=== PATIENT | male | born 1965 | race Hispanic/Latino ===

== ENCOUNTER 2017-11-28 09:54 | Inpatient (IN) | payer BC ==
[2017-11-28] MEDS ORDERED: Nitroglycerin 2% Ointment 1 INCH/1 GM Packet ONE (10:23)
--- NOTE | 2017-11-28 10:33 | RAD ---
PORTABLE CHEST: History: Chest pain. FINDINGS: The lungs are clear. Heart and mediastinum appear normal. Vasculature is normal. IMPRESSION: No acute abnormality. POS: [facility]
[2017-11-28 10:38] LABS: #Eosinphils 0.3 thou/uL (0.0-0.7); #Lymphocytes 1.2 thou/uL (1.20-3.40); #Monocytes 0.3 thou/uL (0.11-0.59); #Neutrophils 3.3 thou/uL (1.40-6.50); %Basophils 0.8 % (0.0-1.0); %Eosinophils 5.3 % (0.0-10.0); %Lymphocytes 23.3 % (21.0-51.0); %Monocytes 5.4 % (0.0-10.0); %Neutrophils 65.2 % (42.0-75.0); Hemoglobin 15.7 g/dL (14.0-18.0); Mean Corpuscular HGB CONC 34.3 g/dL (32.0-36.0); Mean Corpuscular Hemoglobin 32.9 pg (27.0-31.0); Mean Platelet Volume 6.8 fL (7.4-10.4); Platelet Count 262 thou/uL (130-400); Red Blood Cell (RBC) Count 4.77 mill/uL (4.70-6.10); White Blood Cell (WBC) Count 5.1 thou/uL (4.8-10.8)
[2017-11-28 10:47] LABS: INR-International Normal Ratio 0.9; PTT 27.2 SEC (22.9-36.1); Prothrombin Time 12.6 SEC (12.0-14.7)
[2017-11-28 11:00] LABS: ALT (SGPT) 14 U/L (8-55); AST (SGOT) 15 U/L (5-34); Albumin 4.3 g/dL (3.5-5.0); Alkaline Phosphatase 47 U/L (40-150); Anion Gap 5 mmol/L (10-20); BUN (Urea Nitrogen) 10 mg/dL (8.4-25.7); Bilirubin, Total 0.6 mg/dL (0.2-1.2); CK (CPK) 91 U/L (30-200); Calc. Creatinine Clearance 0 mL/min (70-130); Calcium 9.5 mg/dL (7.8-10.44); Carbon Dioxide 32 mmol/L (22-29); Chloride 104 mmol/L (98-107); Estimated GFR-MDRD 87; Globulin 2.6 g/dL (2.4-3.5); Glucose 93 mg/dL (70-105); Lipase 34 U/L (8-78); Protein, Total 6.9 g/dL (6.0-8.3); Sodium 137 mmol/L (136-145)
[2017-11-28 11:03] LABS: CKMB 0.8 ng/mL (0-6.6); Troponin I Less than 0.010 ng/mL (< 0.028)
[2017-11-28] MEDS ORDERED: Nitroglycerin 0.4 MG TAB (25 Tab Bottle) PO PRN (13:09)
[2017-11-28] MEDS ORDERED: Senokot 8.6 MG TAB PO PRN (13:09)
[2017-11-28] MEDS ORDERED: Enoxaparin Sodium 80 MG/0.8 ML SYRINGE SC SCH (13:15)
[2017-11-28] MEDS ORDERED: Enoxaparin Sodium 80 MG/0.8 ML SYRINGE ONE (13:58)
[2017-11-28 14:11] LABS: CKMB 0.9 ng/mL (0-6.6); Troponin I 0.013 ng/mL (< 0.028)
--- NOTE | 2017-11-28 16:33 | HP ---
PRIMARY CARE PHYSICIAN: Dr. Brooks. CHIEF COMPLAINT: Chest tightness. HISTORY OF PRESENT ILLNESS: Patient is a very pleasant 52-year-old male with a past medical history of seronegative rheumatoid arthritis and basal cell skin cancer, who presented to the hospital with c omplaints of chest tightness. The patient states that he is very active, runs about 10-12 miles a we ek, and has been noticing that every time he starts running and strains. he starts having chest tight ness. Patient then also states that he has been having chest pain or chest tightness while sitting a nd at rest. Patient states that, years ago, he has had 2 stress tests, which have indicated that the y were abnormal. The patient also states that he had been evaluated by a consumer loan officer, who did recom mend a cardiac catheterization at that point; however, the patient stated that he is very healthy and was able to workout without any problems, workout including lifting weights and running. Therefore, he never underwent a cardiac catheterization. Patient does state that he does have a significant [facility]; his father had a quadruple bypass at the age of 50. Patient denies any nausea, vomitin g, radiation of the pain to his arms or jaw area. The patient states that, last night, he had intens e chest tightness. He took an aspirin, hoping that it would improve; however, throughout the night t he intensity of the chest tightness worsened. He took another aspirin and this morning again he just felt very uncomfortable with worsening chest tightness, so he brought himself to the ER. He did see his PCP prior to this admission and was supposed to go to an unknown consumer loan officer in town for an klever luation; however, patient could not wait that long, because of his chest pain intensity. PAST MEDICAL HISTORY: 1. Seronegative rheumatoid arthritis. 2. Basal cell carcinoma. FAMILY HISTORY: The patient states that his father had a quadruple bypass at the age of 50. Patient 's two sons have been diagnosed with hypertension and they were pretty young. PAST SURGICAL HISTORY: Hernia repair and skin cancer removal. SOCIAL HISTORY: He denies any alcohol use. Denies any drug use. He has never smoked. ALLERGIES: He has no known drug allergies. CURRENT MEDICATIONS: He takes none. The patient did state that he was on Plaquenil in the past for seronegative rheumatoid arthritis; however, he started having worsening anxiety, which his rheumatolo gist took him off of it. REVIEW OF SYSTEMS: The following complete review of systems was negative, unless otherwise mentioned in the HPI or below: Constitutional: Weight loss or gain, ability to conduct usual activities. Sk in: Rash, itching. Eyes: Double vision, pain. ENT/Mouth: Nose bleeding, neck stiffness, pain, te nderness. Cardiovascular: Palpitations, dyspnea on exertion, orthopnea. Respiratory: Shortness of breath, wheezing, cough, hemoptysis, fever, or night sweats. Gastrointestinal: Poor appetite, abdo natalio pain, heartburn, nausea, vomiting, constipation, or diarrhea. Genitourinary: Urgency, frequen cy, dysuria, nocturia. Musculoskeletal: Pain, swelling. Neurologic/Psychiatric: Anxiety, depressi on. Allergy/Immunologic: Skin rash, bleeding tendency. PHYSICAL EXAMINATION: VITAL SIGNS: Temperature is 98.8, respirations are 15, 61 heart rate, 97% on room air, blood pressur e 144/87. GENERAL: The patient is awake, alert, oriented x3, does not appear in any distress currently. HEENT: Normocephalic, atraumatic. NECK: No lymphadenopathy noted. LUNGS: Clear to auscultation. No rhonchi or wheezes noted. CARDIOVASCULAR: The patient has a mild systolic murmur that is heard in all 4 quadrants. No JVD not ed. ABDOMEN: Soft, nontender. Bowel sounds are present x2. EXTREMITIES: No pedal edema noted. LABORATORY DATA: Labs are as the following: Troponin x3 are negative. EKG did show some inverted P -waves in his leads III and Q-waves in V2. White count is 5.1, hemoglobin of 15.7, hematocrit of 48. 8, platelets of 262,000. Chemistry: Sodium of 137, potassium 4.0, anion gap of 5, bicarbonate of 32 , creatinine 0.91. Troponins x2 were negative. BNP was 25.2. ASSESSMENT AND PLAN: The patient is a very pleasant 52-year-old male, who presents to the hospital f or chest pain. 1. Unstable angina. We will continue to trend troponins x3. We will consult Cardiology. The patie nt was given aspirin. We will put him on a statin. We will check a lipid level in the morning. We will also put the patient on Lovenox. Even though his troponins are negative, he has high cardiac ri sk factors. The patient currently is chest pain free after having the nitro. We will also order nit ro p.r.n. 2. Seronegative rheumatoid arthritis. The patient currently is on no medication. 3. History of basal cell cancer, currently is stable.
[2017-11-28] MEDS ORDERED: Communication Order-Pharmacy FS SCH (16:45)
--- NOTE | 2017-11-28 17:10 | CON ---
DATE OF CONSULTATION: 11/28/2017 REASON FOR CONSULTATION: Accelerated chest pain. HISTORY OF PRESENT ILLNESS: Mr. Short is a very pleasant 52-year-old gentleman who recently prese nted with chest pain. He states noted over the last several weeks. He states he normally runs on a daily basis. He states his exercise tolerance has diminished over the last several weeks. Initially , he was running over 2 miles. He then developed chest pressure and tightness. He was able to run t hird. He then states he had to stop and rest. He then states he can only run no more than a mile an d most recently began having pain at rest. No other ameliorating, exacerbating, or precipitating fac tors present. PAST MEDICAL HISTORY: Mildly elevated blood pressure, although no diagnosis of hypertension, osteoar thritis, hernia operation. ALLERGIES: None. HOME MEDICATIONS: Sulfasalazine. FAMILY HISTORY: Positive family history of CAD. SOCIAL HISTORY: No tobacco or alcohol use. REVIEW OF SYSTEMS: Ten-point review of systems is reviewed and is as above negative. PHYSICAL EXAMINATION: VITAL SIGNS: Blood pressure 120/70, pulse 80, respirations 20. GENERAL: Patient is a pleasant male who is in no acute distress. The patient appears his stated age . NEUROLOGIC: The patient is alert and oriented times 3 with no focal neurologic deficits. HEENT: Sclerae without icterus. Mouth has moist mucous membranes with normal pallor. NECK: No JVD. Carotid upstroke brisk. No bruits bilaterally. LUNGS: Clear to auscultation with unlabored respirations. BACK: No scoliosis or kyphosis. CARDIAC: Regular rate and rhythm with normal S1 and S2. No S3 or S4 noted. No significant rubs, murmurs, thrills, or gallops noted throughout the precordium. PMI is not displaced. There is no parasternal heave. ABDOMEN: Soft, nontender, nondistended. No peritoneal signs present. No hepatosplenomegaly. No abnormal striae. EXTREMITIES: 2+ femoral and 2+ dorsalis pedis pulses. No cyanosis, clubbing, or edema. SKIN: No gross abnormalities. PERTINENT LABORATORY: CK and troponin negative. Creatinine 0.91. EKG normal sinus rhythm, normal EKG. IMPRESSION: Unstable angina. RECOMMENDATIONS: Despite a normal EKG and normal enzymes, Mr. Short's symptoms only suggest unsta ble angina with accelerating pain noted over the last several weeks. He states he has had two stress studies done in the last 6 years. Both have been abnormal, but was provided reassurance by a cardio logist do not proceed with any further treatment or therapy. I did state that we could proceed with a stress study, but was concerned that likely would also come back abnormal. I discussed the procedu re in full detail with Mr. Short. The risks of the procedure were also discussed. The risks of t he procedure include but are not limited to the following: , stroke, [place], need for emergency master chepe, loss of limb, bleeding, and infection, as well as a reaction to the dye causing kidney failure and needing long-term dialysis. I also discussed the risks of PCI to include all of the above includ ing coronary dissection and perforation in addition to acute stent thrombosis and restenosis. All qu estions about the procedure were answered. Given the above, the patient agreed to proceed with coron bessy angiography and possible PCI. All questions were answered. I also discussed drug-coated versus nondrug coated stent placement. He states he does have bulging disk with back pain, but is not zayra g to proceed with back injection. I did state with a drug-coated stent, he cannot proceed with back injections for a year. He understood. We will proceed with drug-coated stent placement if needed. Further recommendations pending the above.
[2017-11-28 17:50] LABS: CKMB 0.7 ng/mL (0-6.6); Troponin I Less than 0.010 ng/mL (< 0.028)
[2017-11-28 17:54] VITALS: BMI 25.9
[2017-11-28] MEDS: Acetaminophen 325 MG TAB PO PRN (20:15)
[2017-11-28] MEDS: Famotidine 20 MG TAB PO SCH (20:16)
[2017-11-28] MEDS ORDERED: Atorvastatin Calcium 40 MG TAB PO SCH (21:00)
[2017-11-29] MEDS: Acetaminophen 325 MG TAB PO PRN (05:11)
[2017-11-29] MEDS: Famotidine 20 MG TAB PO SCH (05:18)
[2017-11-29] MEDS ORDERED: Diazepam 5 MG TAB PO SCH (06:00)
[2017-11-29 06:30] LABS: ALT (SGPT) 12 U/L (8-55); AST (SGOT) 15 U/L (5-34); Albumin 3.9 g/dL (3.5-5.0); Alkaline Phosphatase 42 U/L (40-150); Anion Gap 9 mmol/L (10-20); BUN (Urea Nitrogen) 14 mg/dL (8.4-25.7); Bilirubin, Total 0.6 mg/dL (0.2-1.2); Calc. Creatinine Clearance 108 mL/min (70-130); Calcium 9.3 mg/dL (7.8-10.44); Carbon Dioxide 31 mmol/L (22-29); Cardiac Risk 4.7 (Less than 4.5); Chloride 105 mmol/L (98-107); Cholesterol 164 mg/dl (< 200 Desired); Estimated GFR-MDRD 86; Globulin 2.2 g/dL (2.4-3.5); Glucose 92 mg/dL (70-105); HDL Cholesterol 35 mg/dL (>60 Neg Risk); LDL Cholesterol, Calculated 97 mg/dL; Protein, Total 6.1 g/dL (6.0-8.3); Sodium 141 mmol/L (136-145); Triglycerides 159 mg/dL (Less than 150)
[2017-11-29 06:42] LABS: Band 1 % (5-11); Eosinophils 2 % (0-10); Hemoglobin 14.2 g/dL (14.0-18.0); Lymphocytes 20 % (21-51); MDiff Complete? YES; Mean Corpuscular HGB CONC 33.5 g/dL (32.0-36.0); Mean Corpuscular Hemoglobin 32.5 pg (27.0-31.0); Mean Corpuscular Volume 96.9 fl (80.0-94.0); Mean Platelet Volume 7.2 fL (7.4-10.4); Monocytes 6 % (0-10); Neutrophil 71 % (42-75); Platelet Count 248 thou/uL (130-400); Red Blood Cell (RBC) Count 4.36 mill/uL (4.70-6.10); White Blood Cell (WBC) Count 9.5 thou/uL (4.8-10.8)
[2017-11-29] MEDS ORDERED: Lidocaine 1% (PF) 30 ML VIAL ONE (06:44)
[2017-11-29] MEDS ORDERED: Fentanyl 100 MCG/2 ML VIAL ONE (08:08)
[2017-11-29] MEDS ORDERED: Midazolam HCl 2 mg/2 ml Vial ONE (08:08)
[2017-11-29] MEDS ORDERED: Nitroglycerin 100MG/250ML BOT 250 ML ONE (08:09)
[2017-11-29] MEDS ORDERED: Heparin 10,000 UNITS/1 ML VIAL ONE (08:09)
[2017-11-29] MEDS ORDERED: Verapamil 5 MG/2 ML VIAL ONE (08:09)
[2017-11-29] MEDS ORDERED: Acetaminophen/Codeine 30-300mg Tablet PO PRN ×2 (08:30)
[2017-11-29] MEDS ORDERED: Sodium Chloride 0.9% 200 ML IV PRN (08:30)
[2017-11-29] MEDS ORDERED: Nitroglycerin 0.4 MG TAB (25 Tab Bottle) SL PRN (08:30)
[2017-11-29] MEDS ORDERED: traMADol HCl 50 MG TAB PO PRN (08:30)
[2017-11-29] MEDS ORDERED: Sodium Chloride 0.9% 1,000 ML IV SCH (08:30)
[2017-11-29] MEDS ORDERED: Aspirin 325 MG TAB PO SCH (09:00)
[2017-11-29] MEDS ORDERED: Iopamidol 370 76% 100 ML VIAL ONE (09:10)
[2017-11-29 11:38] VITALS: BP 121/71; TEMP 98.6
--- NOTE | 2017-11-29 20:36 | DIS ---
DATE OF ADMISSION: 11/28/2017 DATE OF DISCHARGE: 11/29/2017 DISCHARGE DIAGNOSES: 1. Chest pain. 2. History of basal cell carcinoma. 3. Seronegative rheumatoid arthritis. DISCHARGE MEDICATIONS: None. HOSPITAL COURSE: The patient is a very pleasant 52-year-old male who initially presented to the hosp ital with complaint of chest tightness. The patient's troponins were negative. No significant EKG c hanges. The patient was seen by Cardiology and given his previous abnormal imaging in the past, he u nderwent a cardiac catheterization, which was negative and required no intervention. The patient's a lso D-dimer was checked, which was negative. The patient was discharged home, asked to follow up wit h his PCP. Lipid panel also was negative.
--- NOTE | 2017-12-02 17:46 | EKG ---
Test Reason : Blood Pressure : / mmHG Vent. Rate : 061 BPM Atrial Rate : 061 BPM P-R Int : 202 ms QRS Dur : 086 ms QT Int : 388 ms P-R-T Axes : 000 -29 032 degrees QTc Int : 390 ms Poor data quality, interpretation may be adversely affected Normal sinus rhythm Minimal voltage criteria for LVH, may be normal variant Septal infarct , age undetermined Abnormal ECG Confirmed by JORGE LUIS EAGLE, [place] ([id number]), sports editor MEHRAN LOZA ([id number]) on 12/02/2017 5:46:09 PM Referred By: Confirmed By:MO KANG MD
== END 2017-11-29 14:40 | disposition home or self-care (01) | DRG 287 ==
LOC: ERS 09:54 → 2NO 11:56
PROVIDERS: ADMIT Internal Medicine; ATTEND Internal Medicine
PROC: 4A023N7 Measurement of Cardiac Sampling and Pressure, Left Heart, Percutaneous Approach (ICD-10-PCS; principal; 2017-11-29)
PROC: B2111ZZ Fluoroscopy of Multiple Coronary Arteries using Low Osmolar Contrast (ICD-10-PCS; 2017-11-29)
PROC: B2151ZZ Fluoroscopy of Left Heart using Low Osmolar Contrast (ICD-10-PCS; 2017-11-29)
DX: R07.89 Other chest pain (principal); M06.00 Rheumatoid arthritis without rheumatoid factor, unspecified site
CPT/HCPCS: 36415; 71045; 80053; 80061; 82553; 83690; 83880; 84484; 85007; 85025; 85027; 85379; 85610; 85730; 93005; 93458; 94760; 96372; 99152; C1769; J1644; J1650; J2001; J2250; J3010

== ENCOUNTER 2020-09-14 11:21 | Inpatient (IN) | payer BC ==
[2020-09-14] MEDS ORDERED: Aspirin 325 MG TAB ONE (12:07)
[2020-09-14 12:13] LABS: #Basophils 0.1 thou/uL (0.0-0.2); #Eosinphils 0.6 thou/uL (0.0-0.7); #Lymphocytes 1.4 thou/uL (1.20-3.40); #Monocytes 0.4 thou/uL (0.11-0.59); #Neutrophils 4.4 thou/uL (1.40-6.50); %Basophils 0.8 % (0.0-1.0); %Eosinophils 9.1 % (0.0-10.0); %Lymphocytes 19.8 % (21.0-51.0); %Monocytes 6.3 % (0.0-10.0); Hemoglobin 15.9 g/dL (14.0-18.0); Mean Corpuscular HGB CONC 33.9 g/dL (32.0-36.0); Mean Corpuscular Hemoglobin 31.1 pg (27.0-31.0); Mean Corpuscular Volume 91.6 fL (78.0-98.0); Platelet Count 255 thou/uL (130-400); Red Blood Cell (RBC) Count 5.13 mill/uL (4.70-6.10); White Blood Cell (WBC) Count 6.9 thou/uL (4.8-10.8)
--- NOTE | 2020-09-14 12:13 | RAD ---
Exam: Chest one view HISTORY:Chest pain x2 weeks Comparison: 11/28/2017 FINDINGS: Cardiac silhouette: Normal Aorta: Unremarkable Pulmonary vessels: Normal Costophrenic angles: Clear LUNGS: No masses or consolidation. Pneumothorax: None Osseous abnormalities: None IMPRESSION: No acute cardiopulmonary process.
[2020-09-14 12:20] LABS: INR-International Normal Ratio 0.9; PTT 25.3 sec (22.9-36.1); Prothrombin Time 12.2 sec (12.0-14.7)
[2020-09-14 12:29] LABS: ALT (SGPT) 18 U/L (8-55); AST (SGOT) 18 U/L (5-34); Albumin 4.3 g/dL (3.5-5.0); Alkaline Phosphatase 45 U/L (40-110); Anion Gap 12 mmol/L (10-20); BUN (Urea Nitrogen) 13 mg/dL (8.4-25.7); Bilirubin, Total 0.5 mg/dL (0.2-1.2); Calc. Creatinine Clearance 0 mL/min (70-130); Calcium 9.1 mg/dL (7.8-10.44); Carbon Dioxide 28 mmol/L (22-29); Chloride 104 mmol/L (98-107); Globulin 2.6 g/dL (2.4-3.5); Glucose 84 mg/dL (70-105); Potassium 4.1 mmol/L (3.5-5.1); Protein, Total 6.9 g/dL (6.0-8.3); Sodium 140 mmol/L (136-145)
--- NOTE | 2020-09-14 13:22 | PDOC.HHP ---
Hospitalist HPI - History of Present Illness Chest pain History of Present Illness: Mr. Short is a 55-year-old male with a past medical history of seronegative RA, basal cell skin cancer, myocardial bridge who presents to the ED for the evaluation of chest pain. Patient reports that over the past 2 weeks he has noticed increasing and worsening chest pain. Patient reports that the pain feels constrictive and radiates to his left shoulder. Patient reports that he normally gets this pain when he runs or overexerts himself during intense workouts and that it is relieved by rest. Does report that pain has been constant over the past few days prompting him to seek evaluation. Patient was evaluated in 2018 for similar complaints and underwent a cardiac cath which was negative. Patient reports that he has a history of a myocardial bridge which causes his chest pain. Patient previously was following with with Dr. Barba. In emergency room initial vital signs 166/94, 69, 16, 98, 99% on room air. Initial troponin 0 0.010. EKG showed normal sinus rhythm with nonspecific T wave inversions. BNP 20.7. H/H 15.9/47.0. WBC 6.9. BUN/CR 13/0.92. Sodium 140, potassium 4.1. AST/ALT /18. Patient received 325 mg of aspirin in the emergency room. Hospitalist ROS - Review of Systems Constitutional: denies: fever, chills, sweats, weakness, malaise, other Eyes: denies: pain, vision change, conjunctivae inflammation, eyelid inflammation, redness, other ENT: denies: ear pain, ear discharge, nose pain, nose discharge, nose congestion, mouth pain, mouth swelling, throat pain, throat swelling, other Respiratory: denies: cough, dry, shortness of breath, hemoptysis, SOB with excertion, pleuritic pain, sputum, wheezing, other Cardiovascular: reports: chest pain. denies: palpitations, orthopnea, paroxysmal noc. dyspnea, edema, light headedness, other Gastrointestinal: denies: nausea, vomiting, abdominal pain, diarrhea, constipation, melena, hematochezia, other Genitourinary: denies: dysuria, frequency, incontinence, hematuria, retention, other Musculoskeletal: denies: neck pain, shoulder pain, arm pain, back pain, hand pain, leg pain, foot pain, other Skin: denies: rash, lesions, poncho, bruising, other Neurological: denies: weakness, numbness, incoordination, change in speech, confusion, seizures, other - Medication Medications: Home medications include Celebrex No known drug allergies Hospitalist History - Past Medical History Other Medical History: Past medical history significant for Seronegative rheumatoid arthritis on Celebrex Basal cell skin cancer, patient reports he gets every 80 basal cell removals per year Myocardial bridge causing chronic intermittent chest pain - Past Surgical History Other Surgical History: Past surgical history includes Appendectomy Hernia repair Basal cell removal Shoulder surgery - Family History Other Family History: Family history significant for father who had a CABG at age 50. Patient reports hypertension runs in his family. - Social History Smoking Status: Never smoker Alcohol: reports: None Drugs: reports: none Living Situation: With Family Activity level: independent ambulation - Exam General Appearance: NAD, awake alert Eye: PERRL, anicteric sclera ENT: normocephalic atraumatic, no oropharyngeal lesions, moist mucosa Neck: supple, symmetric, no JVD, no thyromegaly, no lymphadenopathy, no carotid bruit Heart: RRR, no murmur, no gallops, no rubs, normal peripheral pulses Respiratory: CTAB, no wheezes, no rales, no ronchi, normal chest expansion, no tachypnea, normal percussion Gastrointestinal: soft, non-tender, non-distended, normal bowel sounds, no palpable masses, no hepatomegaly, no splenomegaly, no bruit Extremities: no cyanosis, no clubbing, no edema Skin: normal turgor, no lesions, no rashes Neurological: cranial nerve grossly intact, normal sensation to touch, no weakness, no focal deficits, no new deficit Musculoskeletal: normal tone, normal strength, no muscle wasting Psychiatric: normal affect, normal behavior, A&O x 3 Hospitalist Results - Labs Result Diagrams: 09/14/20 11:57 09/14/20 11:57 Lab results: WBC 6.9 thou/uL (4.8-10.8) 09/14/20 11:57 Hgb 15.9 g/dL (14.0-18.0) 09/14/20 11:57 Hct 47.0 % (42.0-52.0) 09/14/20 11:57 MCV 91.6 fL (78.0-98.0) 09/14/20 11:57 Plt Count 255 thou/uL (130-400) 09/14/20 11:57 Neutrophils % 64.0 % (42.0-75.0) 09/14/20 11:57 Sodium 140 mmol/L (136-145) 09/14/20 11:57 Potassium 4.1 mmol/L (3.5-5.1) 09/14/20 11:57 Chloride 104 mmol/L (98-107) 09/14/20 11:57 Carbon Dioxide 28 mmol/L (22-29) 09/14/20 11:57 BUN 13 mg/dL (8.4-25.7) 09/14/20 11:57 Creatinine 0.92 mg/dL (0.7-1.3) 09/14/20 11:57 Glucose 84 mg/dL (70-105) 09/14/20 11:57 Calcium 9.1 mg/dL (7.8-10.44) 09/14/20 11:57 Total Bilirubin 0.5 mg/dL (0.2-1.2) 09/14/20 11:57 AST 18 U/L (5-34) 09/14/20 11:57 ALT 18 U/L (8-55) 09/14/20 11:57 Alkaline Phosphatase 45 U/L (40-110) 09/14/20 11:57 Troponin I Less than 0.010 ng/mL (< 0.028) 09/14/20 11:57 B-Natriuretic Peptide 20.7 pg/mL (0-100) 09/14/20 11:57 Serum Total Protein 6.9 g/dL (6.0-8.3) 09/14/20 11:57 Albumin 4.3 g/dL (3.5-5.0) 09/14/20 11:57 Hospitalist H&P A/P - Plan Plan: Chest pain Patient presents with constant chest pain. History of myocardial bridge. Cath in 2018 which was negative. Follows with Dr. Barba. EKG normal sinus rhythm with nonspecific T wave changes. Initial troponin 0 0.010. Will admit for chest pain rule out. Plan Trend troponins Telemetry monitoring Aspirin Lipid panel in morning TSH, magnesium Cardiology consult, recommendations appreciated Seronegative RA Patient on home Celebrex. We will continue as needed. Hypertension Patient not on any home hypertensive medications, however reports that his blood pressures routinely elevated when every goes to his PCP. Patient's well pressure elevated to the 160s on admission today. We will continue to trend. DVT prophylaxisLovenox Full code Case discussed with attending physician, Dr. Marquez.
[2020-09-14] MEDS ORDERED: Nitroglycerin 0.4 MG TAB (25 Tab Bottle) SL PRN (13:28)
[2020-09-14 15:12] LABS: Troponin I Less than 0.010 ng/mL (< 0.028)
[2020-09-14] MEDS ORDERED: Acetaminophen 325 MG TAB PO PRN (15:48)
[2020-09-14] MEDS ORDERED: Morphine 2 MG/ML VIAL SLOW IVP PRN (15:48)
[2020-09-14] MEDS ORDERED: Morphine 4 MG/ML VIAL ONE (15:53)
[2020-09-14 17:25] VITALS: BMI 26.0
[2020-09-14 18:35] LABS: Troponin I 0.014 ng/mL (< 0.028)
[2020-09-15 02:17] LABS: SARS-CoV-2 MS2 Positive; SARS-CoV-2 N Gene Negative; SARS-CoV-2 S Gene Negative; SARS-CoV-2 by NAA Not Detected (NotDetected); SARS-CoV-2 orf1ab Negative
[2020-09-15 04:58] LABS: Cardiac Risk 3.5 (Less than 4.5)
[2020-09-15] MEDS ORDERED: Ketorolac Tromethamine 30 MG/ML VIAL IVP SCH (08:00)
[2020-09-15] MEDS ORDERED: Ibuprofen 800 MG TAB PO SCH (08:15)
[2020-09-15] MEDS ORDERED: Enoxaparin Sodium 40 MG/0.4 ML SYRINGE SC SCH (09:00)
[2020-09-15] MEDS ORDERED: FLU VACC QS2020-21(6MOS UP)/PF 60 MCG/0.5 ML SYRINGE IM ONE (09:00)
--- NOTE | 2020-09-15 09:10 | CON ---
DATE OF CONSULTATION: REASON FOR CONSULTATION: Chest pain. HISTORY OF PRESENT ILLNESS: Mr. Short is a pleasant 55-year-old gentleman, whom I have seen and evaluated in the past. Mr. Short underwent coronary angiography in 2018 and was found to have a myocardial bridge without milking effect. States he has had intermittent chest pain since that time and has been unpredictable. He states over the last several days, he has had constant chest pain, [id number] in nature, mainly in his left chest with radiation to his shoulder. This has not been intermittent. It has been constant, also worse with taking a deep breath and movement. His EKG did suggest somewhat diffuse ST-segment elevation. PAST MEDICAL HISTORY: 1. 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 2. Rheumatoid arthritis. 3. Basal cell skin cancer. PAST SURGICAL HISTORY: Appendectomy, hernia repair, basal cell removal, shoulder surgery. HOME MEDICATIONS: Celebrex. FAMILY HISTORY: Positive for CAD. REVIEW OF SYSTEMS: A 10-point review of systems is reviewed and as above, otherwise negative. PHYSICAL EXAMINATION: GENERAL: Patient is a pleasant male, who is in no acute distress. The patient appears their stated age. VITAL SIGNS: Blood pressure 131/88, pulse 87, temperature 98.2. NEUROLOGIC: The patient is alert and oriented x3 with no focal neurologic deficits. HEENT: Sclerae without icterus. Mouth has moist mucous membranes with normal pallor. NECK: No JVD. Carotid upstroke brisk. No bruits bilaterally. LUNGS: Clear to auscultation with unlabored respirations. BACK: No scoliosis or kyphosis. CARDIAC: Regular rate and rhythm with normal S1 and S2. No S3 or S4 noted. No significant rubs, murmurs, thrills, or gallops noted throughout the precordium. PMI is not displaced. There is no parasternal heave. ABDOMEN: Soft, nontender, nondistended. No peritoneal signs present. No hepatosplenomegaly. No abnormal striae. EXTREMITIES: 2+ femoral and 2+ dorsalis pedis pulses. No cyanosis, clubbing, or edema. SKIN: No gross abnormalities. PERTINENT LABORATORY DATA: CK-troponin negative. EKG shows normal sinus rhythm with no acute ST-T wave changes suggesting ischemia. IMPRESSION: 1. Pleurisy versus pericarditis. 2. Chest pain. 3. Myocardial bridge. RECOMMENDATIONS: 1. We will add Toradol in addition to ibuprofen. 2. Add Protonix. 3. Myocardial bridge is not felt to be significant. There is no milking effect present. The images were reviewed. May consider an outpatient noninvasive stress study to assess for ischemia to that distribution which is highly unlikely. 4. If the patient's symptoms improved over the next several hours, it would be okay from my standpoint to discharge home with close outpatient followup. Job ID: [id number]
[2020-09-15] MEDS: Aspirin Chewable 81 MG TAB PO SCH (10:26)
[2020-09-15] MEDS: Ibuprofen 600 MG TAB PO SCH ×3 (10:26→20:32)
--- NOTE | 2020-09-15 17:48 | PDOC.HOSPP ---
- Subjective Encounter Date: 09/15/20 Encounter Time: 17:47 Subjective: No overnight events. Patient continues to endorse chest pain that is constant. Waiting on echocardiogram. Chart and medications reviewed. - Objective Vital Signs & Weight: Vital Signs (12 hours) Temp Pulse Resp BP Pulse Ox 09/15/20 12:00 98.2 F 59 L 19 137/89 98 09/15/20 08:07 98.2 F 57 L 20 131/88 98 Weight Weight 181 lb 11.2 oz I&O: 09/14/20 09/15/20 09/16/20 06:59 06:59 06:59 Intake Total 240 1470 Balance 240 1470 Result Diagrams: 09/14/20 11:57 09/14/20 11:57 Hospitalist ROS - Review of Systems Constitutional: denies: fever, chills, sweats, weakness, malaise, other Eyes: denies: vision change ENT: denies: nose discharge, throat pain Respiratory: denies: cough, dry, shortness of breath Cardiovascular: reports: chest pain. denies: palpitations, orthopnea, light headedness Gastrointestinal: denies: nausea, vomiting, abdominal pain, diarrhea, constipation, melena, hematochezia Genitourinary: denies: dysuria Skin: denies: rash, lesions Neurological: denies: weakness, numbness, seizures - Medication Medications: Active Medications Generic Name Dose Route Start Last Admin Trade Name Freq PRN Reason Stop Dose Admin Aspirin 81 mg 09/15/20 09:00 09/15/20 10:26 Aspirin Chewable 81 Mg Tab PO 81 mg DAILY GEORGE Administration Ibuprofen 600 mg 09/15/20 09:00 09/15/20 15:56 Ibuprofen 600 Mg Tab PO 600 mg Q6H GEORGE Administration Morphine Sulfate 1 mg 09/14/20 15:48 09/15/20 03:04 Morphine 2 Mg/Ml Vial SLOW IVP 1 mg Q4H PRN Administration Chest Pain Pantoprazole Sodium 40 mg 09/15/20 09:00 09/15/20 10:25 Pantoprazole 40 Mg Tab PO 40 mg DAILY GEORGE Administration - Exam General Appearance: NAD, awake alert Eye: PERRL, anicteric sclera ENT: normocephalic atraumatic, no oropharyngeal lesions, moist mucosa Neck: supple, symmetric, no JVD, no thyromegaly, no lymphadenopathy, no carotid bruit Heart: RRR, no murmur, no gallops, no rubs, normal peripheral pulses Respiratory: CTAB, no wheezes, no rales, no ronchi, normal chest expansion, no tachypnea, normal percussion Gastrointestinal: soft, non-tender, non-distended, normal bowel sounds, no palpable masses, no hepatomegaly, no splenomegaly, no bruit Extremities: no cyanosis, no clubbing, no edema Skin: normal turgor, no lesions, no rashes Neurological: cranial nerve grossly intact, normal sensation to touch, no weakness, no focal deficits, no new deficit Musculoskeletal: normal tone, normal strength, no muscle wasting Psychiatric: normal affect, normal behavior, A&O x 3 Hosp A/P - Plan Chest pain Patient presents with constant chest pain. History of myocardial bridge. Cath in 2018 which was negative. Follows with Dr. Barba. EKG normal sinus rhythm with nonspecific T wave changes. Troponin negative x3. Dr. Barba felt pain likely MSK vs pericarditis, not likely 2/2 myocardial bridge. Patient likely can be discharged if echo is negative with close outpatient follow-up. Plan Telemetry monitoring Aspirin -Ibuprofen, toradol for MSK pain -Can likely be discharged in am if echo is nl -Echo pending -Will need outpatient follow up with Dr. Barba. Seronegative RA Patient on home Celebrex. We will continue as needed. Hypertension Patient not on any home hypertensive medications, however reports that his blood pressures routinely elevated when every goes to his PCP. Patient's well pressure elevated to the 160s on admission today. We will continue to trend. DVT prophylaxisLovenox Full code Case discussed with attending physician, Dr. Marquez.
[2020-09-16] MEDS: Ibuprofen 600 MG TAB PO SCH ×2 (04:37→09:20)
[2020-09-16] MEDS: Aspirin Chewable 81 MG TAB PO SCH (09:20)
[2020-09-16 09:52] VITALS: TEMP 98
[2020-09-16 12:18] VITALS: BP 119/74
--- NOTE | 2020-09-16 18:12 | PDOC.DS.DS ---
Provider - Provider Date of Admission: 09/14/20 13:03 Date of Discharge: 09/16/20 Admitting Provider: Chelly Marquez MD Consultations: Cardiology Primary Care Physician: Keenan Brooks MD Course - Hospital Course Hospital Course: Patient is a 55-year-old male with past medical history significant for RA, basal skin cell cancer, and myocardial bridge who presented to the ER for evaluation of chest pain. Patient had 3 negative serial troponins and had cardiology consulted upon admission. Cardiology evaluated the patient and felt the chest pain was more pleurisy versus pericarditis. Patient was monitored on telemetry for 2 nights. The chest pain decreased significantly while in the hospital and patient was discharged home with ibuprofen and to follow-up outpatient with cardiology for a stress test. Resuscitation Status: 09/14/20 13:29 Resuscitation Status Routine Co-Sign Provider: Resuscitation Status: FULL: Full Resuscitation - Labs Lab Results: 09/14/20 11:57 09/14/20 11:57 - Physical Exam Vitals: Vital Signs (12 hours) Temp Pulse Resp BP Pulse Ox 09/16/20 12:00 98.0 F 60 16 119/74 100 09/16/20 08:00 98.0 F 62 16 122/77 99 09/16/20 07:35 99 Weight Weight 181 lb 11.2 oz Physical Exam: The patient was seen and examined on the day of discharge. Problem - Time spent with Patient (mins): 20 Plan - Discharge Medications Home Medications: Medication Instructions Recorded Confirmed Type Celecoxib [Celebrex] 50 mg PO DAILY 09/14/20 09/14/20 History Ibuprofen [Motrin] 600 mg PO Q6H tab 09/16/20 Rx Allergies: No Known Allergies Allergy (Unverified 12/29/19 17:21) - Discharge Instructions Discharge Instructions:: Continue ibuprofen as instructed by Dr Barba (cardiology). Follow up with him in his office for outpatient stress test. - Follow up Plan Referrals: Serafin Barba MD [Active] - (per Dr. Barba for outpatient stress test) Keenan Brooks MD [Primary Care Provider] - 7 Days (Please follow up with your primary care provider in one week.) Disposition: HOME Quality - Care Measures CORE MEASURES:: N/A
== END 2020-09-16 12:22 | disposition home or self-care (01) | DRG 194 ==
LOC: ERS 11:21 → 2NO 13:03
PROVIDERS: ADMIT Internal Medicine; ATTEND Internal Medicine
DX: R09.1 Pleurisy (principal); I31.9 Disease of pericardium, unspecified; Z20.828 Contact with and (suspected) exposure to other viral communicable diseases; M06.00 Rheumatoid arthritis without rheumatoid factor, unspecified site; I10 Essential (primary) hypertension; Z85.828 Personal history of other malignant neoplasm of skin; Z90.49 Acquired absence of other specified parts of digestive tract; Z98.890 Other specified postprocedural states
CPT/HCPCS: 36415; 71045; 80053; 80061; 83735; 83880; 84443; 84484; 85025; 85610; 85730; 87635; 93005; 93306; 94760; J1885; J2270; U0003

== ENCOUNTER 2022-02-09 08:39 | Outpatient (CLI) | payer BC | END 2022-02-09 08:40 | disposition home or self-care (01) | LOC: BICRAD 08:39 | PROVIDERS: ATTEND Family Medicine | DX: R05.9 Cough, unspecified (principal); R91.8 Other nonspecific abnormal finding of lung field | CPT/HCPCS: 71046 ==

== ENCOUNTER 2022-02-10 12:17 | Outpatient (CLI) | payer BC | END 2022-02-10 12:18 | disposition home or self-care (01) | LOC: BICCT 12:17 | PROVIDERS: ATTEND Family Medicine | DX: R91.8 Other nonspecific abnormal finding of lung field (principal) | CPT/HCPCS: 71260; 82565 ==